=== PATIENT | male | born 2000 | race Caucasian/White ===

== ENCOUNTER 2023-03-29 22:16 | Emergency (ER) | payer BC ==
[2023-03-29] MEDS ORDERED: predniSONE 20 MG TAB ONE (22:59)
[2023-03-29] MEDS ORDERED: Ipratropium/Albuterol 3 ML NEB ONE (23:00)
[2023-03-29] MEDS ORDERED: Albuterol 2.5 MG/0.5 ML NEB ONE (23:01)
[2023-03-29 23:07] LABS: SARS-CoV-2 NAA Rapid Test DETECTED (NotDetected)
== END 2023-03-29 23:26 | disposition home or self-care (01) ==
LOC: ERS 22:16
DX: U07.1 COVID-19 (principal); J45.909 Unspecified asthma, uncomplicated; Z87.891 Personal history of nicotine dependence
CPT/HCPCS: J7512; J7611; J7620